=== PATIENT | female | born 1950 | race Caucasian/White ===

== ENCOUNTER 2022-04-13 10:09 | Outpatient (CLI) | payer MEDICARE | END 2022-04-13 10:10 | disposition home or self-care (01) | LOC: CSHMAMMO 10:09 | PROVIDERS: ATTEND Internal Medicine | DX: Z12.31 Encounter for screening mammogram for malignant neoplasm of breast (principal); M81.0 Age-related osteoporosis without current pathological fracture; M85.89 Other specified disorders of bone density and structure, multiple sites; Z78.0 Asymptomatic menopausal state; Z85.828 Personal history of other malignant neoplasm of skin; Z85.820 Personal history of malignant melanoma of skin | CPT/HCPCS: 77063; 77067; 77080 ==

== ENCOUNTER 2022-08-29 12:19 | Outpatient (CLI) | payer MEDICARE | END 2022-08-29 12:20 | disposition home or self-care (01) | LOC: CSHRAD 12:19 | PROVIDERS: ATTEND Internal Medicine | DX: R07.82 Intercostal pain (principal) | CPT/HCPCS: 71046 ==

== ENCOUNTER 2023-08-21 08:18 | Outpatient (CLI) | payer MEDICARE | END 2023-08-21 08:19 | disposition home or self-care (01) | LOC: CSHMAMMO 08:18 | PROVIDERS: ATTEND Internal Medicine | DX: Z12.31 Encounter for screening mammogram for malignant neoplasm of breast (principal); Z85.828 Personal history of other malignant neoplasm of skin; Z85.820 Personal history of malignant melanoma of skin | CPT/HCPCS: 77063; 77067 ==

== ENCOUNTER 2023-11-06 11:09 | Outpatient (CLI) | payer MEDICARE | END 2023-11-06 11:10 | disposition home or self-care (01) | LOC: CSHMAMMO 11:09 | PROVIDERS: ATTEND Internal Medicine | DX: M81.0 Age-related osteoporosis without current pathological fracture (principal); M85.89 Other specified disorders of bone density and structure, multiple sites | CPT/HCPCS: 77080 ==